=== PATIENT | male | born 1980 | race Caucasian/White ===

== ENCOUNTER 2021-10-04 08:38 | Emergency (ER) | payer BC ==
[~2021-10-04] VITALS: Ht 188 cm; Wt 136.1 kg
[2021-10-04 09:12] LABS: BASOPHILS # (AUTO) 0.1 (0.0-0.1); BASOPHILS % 0.6 % (0.0-1.0); EOSINOPHILS # (AUTO) 0.2 (0.0-0.4); EOSINOPHILS % 2.2 % (0.0-6.0); HEMATOCRIT 50.1 % (38.2-49.6); HEMOGLOBIN 16.1 g/dL (14.0-18.0); LYMPHOCYTES # (AUTO) 1.5 (1.0-3.2); LYMPHOCYTES % 17.6 % (18.0-39.1); MEAN CORPUSCULAR HEMOGLOBIN 29.8 pg (28-32); MEAN CORPUSCULAR HGB CONC 32.1 g/dL (31-35); MEAN CORPUSCULAR VOLUME 92.6 fL (81-99); MONOCYTES # (AUTO) 0.5 (0.2-0.8); MONOCYTES % 5.8 % (4.4-11.3); NEUTROPHILS # (AUTO) 6.2 (2.1-6.9); NEUTROPHILS % 73.3 % (38.7-80.0); PLATELET COUNT 242 x10e3/uL (140-360); RED BLOOD COUNT 5.41 x10e6/uL (4.3-5.7); RED CELL DISTRIBUTION WIDTH 13.8 % (11.7-14.4)
[2021-10-04 09:27] LABS: CLARITY,URINE CLEAR (CLEAR); COLOR,URINE YELLOW (YELLOW); LEUKOCYTE ESTERASE ,URINE NEGATIVE (NEGATIVE); NITRITE,URINE NEGATIVE (NEGATIVE); PROTEIN,URINE DIPSTICK NEGATIVE (NEGATIVE)
[2021-10-04 09:28] LABS: KETONES,URINE NEGATIVE (NEGATIVE)
[2021-10-04 09:29] LABS: ALBUMIN 3.8 g/dL (3.5-5.0); ANION GAP 16.2 mmol/L (8-16); CALCIUM 9.2 mg/dL (8.4-10.2); CREATININE, SERUM 1.14 mg/dL (0.72-1.25); POTASSIUM 4.2 mmol/L (3.5-5.1)
[2021-10-04] MEDS ORDERED: ONDANSETRON HCL INJ 2MG/ML 2ML 2 MG/ML VIAL IV STA (09:32)
[2021-10-04 09:33] LABS: BACTERIA,URINE FEW /HPF; EPITHELIAL CELLS,URINE FEW /LPF; WBC,URINE (MAN) 0-5 /HPF (0-5)
[2021-10-04] MEDS ORDERED: Morphine 4mg INJECTION 4 MG/ML INJ IV ONE (09:45)
[2021-10-04] MEDS ORDERED: GABAPENTIN300 MG PO (11:05)
== END 2021-10-04 11:59 | disposition home or self-care (01) ==
LOC: ER 09:10
DX: N50.812 Left testicular pain (principal)
CPT/HCPCS: 36415; 74176; 76870; 80053; 81001; 85025; 93976; 99284; J2270; J2405